=== PATIENT | female | born 1975 | race Caucasian/White ===

== ENCOUNTER 2016-09-20 10:23 | Inpatient (IN) | payer MEDICAID ==
[~2016-09-20] VITALS: Ht 152.4 cm; Wt 72.4 kg
[2016-09-20] MEDS ORDERED: CARBOPROST 250 MCG INJ IM PRN (11:00)
[2016-09-20] MEDS ORDERED: BUTORPHANOL 2 MG INJ IV PRN (11:00)
[2016-09-20] MEDS ORDERED: LACTATED RINGER'S 1,000 ML IV PRN (11:00)
[2016-09-20] MEDS ORDERED: AMPICILLIN 2 GM/NS (PMX) 100 ML IV ONE (11:00)
[2016-09-20] MEDS ORDERED: OXYTOCIN 30 UNITS/LR 500 ML IV SCH ×3 (11:00→14:30)
[2016-09-20] MEDS ORDERED: LIDOCAINE 1% (MPF) 30 ML INJ INJ PRN (11:00)
[2016-09-20] MEDS ORDERED: METHYLERGONOVINE 0.2 MG INJ IM PRN (11:00)
[2016-09-20] MEDS ORDERED: MISOPROSTOL 200 MCG TAB PR PRN (11:00)
[2016-09-20] MEDS ORDERED: OXYTOCIN 30 UNITS/LR 500 ML IV PRN (11:00)
[2016-09-20] MEDS: LACTATED RINGER'S 1,000 ML IV SCH ×2 (11:19→15:30)
[2016-09-20 11:29] VITALS: Ht 152.4 cm; Wt 72.4 kg
[2016-09-20 11:30] VITALS: BP 100/55; PULSE 67; RESP 21
[2016-09-20] MEDS ORDERED: PRENAT PO (11:40)
[2016-09-20 11:54] LABS: BASOPHILS % 0.5 % (0.0-2.0); EOSINOPHILS % 0.2 % (0.0-7.0); HEMATOCRIT 34.1 % (37.0-47.0); HEMOGLOBIN 11.6 g/dl (12.0-16.0); LYMPHOCYTES # 1.4 10^3/ul (0.8-2.9); LYMPHOCYTES % 24.3 % (15.0-51.0); MEAN CORPUSCULAR HEMOGLOBIN 32.1 pg (29.0-33.0); MEAN CORPUSCULAR HGB CONC 34.2 g/dl (32.0-37.0); MEAN CORPUSCULAR VOLUME 93.8 fl (82.0-101.0); MEAN PLATELET VOLUME 10.6 fl (7.4-10.4); MONOCYTE # 0.3 10^3/ul (0.3-0.9); MONOCYTES % 5.7 % (0.0-11.0); NEUTROPHILS % 69.3 % (39.0-77.0); PLATELET COUNT 150 10^3/UL (140-440); RED BLOOD COUNT 3.63 10^6/ul (4.20-5.40); RED CELL DISTRIBUTION WIDTH 14.2 % (11.5-14.5); UNCORRECTED WBC 5.7 10^3/ul (4.8-10.8); WHITE BLOOD COUNT 5.7 10^3/ul (4.8-10.8)
[2016-09-20 11:59] LABS: CONDITION 1
[2016-09-20 12:06] LABS: PROTIME 13.2 Sec (12.2-14.2)
[2016-09-20 12:07] LABS: PARTIAL THROMBOPLASTIN TIME 31.3 Sec (25.0-35.0)
--- NOTE | 2016-09-20 13:02 | RADRPT ---
PROCEDURE: US OB. CLINICAL INDICATION: Gestational diabetes TECHNIQUE: Multiple sonographic images of the pelvis were obtained. Transabdominal imaging only w as performed. The images were reviewed on a PACS workstation. COMPARISON: No prior studies are available for comparison. FINDINGS: There is a single viable intrauterine gestation. Cardiac activity is present with 137 beats per min reema. There is a cephalic presentation. Measurements were made in order to determine age. The results are as follows: BPD = 9.11 cm HC = 33.84 cm AC = 37.13 cm FL = 6.95 cm Gestational age is 38 weeks 1 day and DANIEL is 10/03/2016 by ultrasound criteria. Gestational age is 38 weeks 5 days and DANIEL is 09/29/2016 by LMP. EFW = 3715 g +/- 557 g (78 %). The placenta is anterior. There is no evidence for an abruption or placenta previa. IMPRESSION: 1. Single live intrauterine gestation of approximately 38 weeks 1 day by ultrasound criteria. RPTAT: EE .Davy Trinidad MD, Date Time Electronically viewed and signed by .Davy Trinidad MD, on 09/20/2016 13:02 .R/
[2016-09-20] MEDS: AMPICILLIN 1 GM/NS (PMX) 50 ML IV SCH ×3 (15:33→23:33)
[2016-09-20] MEDS: DEXTROSE 5%-LR 1,000 ML IV SCH (17:12)
[2016-09-21] MEDS: LACTATED RINGER'S 1,000 ML IV SCH ×2 (03:14→10:56)
[2016-09-21] MEDS: AMPICILLIN 1 GM/NS (PMX) 50 ML IV SCH ×4 (03:23→15:45)
[2016-09-21] MEDS: DEXTROSE 5%-LR 1,000 ML IV SCH ×3 (07:15→13:08)
[2016-09-21] MEDS ORDERED: LACTATED RINGER'S 1,000 ML IV ONE (09:49)
[2016-09-21] MEDS ORDERED: FENTAnyl 2MCG/ML-ROPIV 0.2% 100 ML ONE (09:54)
[2016-09-21] MEDS ORDERED: ONDANSETRON 4 MG INJ ONE (09:55)
[2016-09-21] MEDS ORDERED: CITRIC ACID/NA CITRATE 30 ML CUP ONE (09:55)
[2016-09-21] MEDS ORDERED: ONDANSETRON 4 MG INJ IV STA (09:56)
[2016-09-21] MEDS ORDERED: FENTAnyl 2MCG/ML-ROPIV 0.2% 100 ML BAG EPI SCH ×2 (10:00)
[2016-09-21] MEDS ORDERED: DIPHENHYDRAMINE 50 MG INJ IV PRN (10:00)
[2016-09-21] MEDS ORDERED: CITRIC ACID/NA CITRATE 30 ML CUP PO ONE ×2 (10:00)
[2016-09-21] MEDS ORDERED: ONDANSETRON 4 MG INJ IV ONE (10:00)
[2016-09-21] MEDS ORDERED: NALOXONE (0.4 MG/ML) INJ IV PRN (10:00)
[2016-09-21] MEDS ORDERED: ONDANSETRON 4 MG INJ IV PRN ×2 (10:00→18:30)
[2016-09-21] MEDS ORDERED: PROCHLORPERAZINE 10 MG INJ IV PRN (10:00)
[2016-09-21] MEDS ORDERED: OXYTOCIN 30 UNITS/LR 500 ML IV SCH (10:00)
[2016-09-21] MEDS ORDERED: HYDROmorphONE 1 MG/ML SYG IV PRN ×2 (10:00)
--- NOTE | 2016-09-21 16:55 | HP ---
Date/Time of Note Date/Time of Note DATE: 09/21/16 TIME: 16:46 OB - History Hx of Present Free Text/Dictation 41 years old female 5 para 4 at 38 weeks 5 7 days admitted to [facility] labor and delivery room in active labor, pelvic examination on admission' cervical dilatation at 3 cm 60% effacement vertex at - 2 station contractions every 3-4 minutes heart tones category 1 her was complicated with gestational diabetes diet-controlled Estimated Due Date: Sep 29, 2016 : 5 Para: 4 Care: Limited Care Ultrasounds: Normal mid trimester US Obstetrical Complications: Gestational Diabetes Medical Complications: None Past Family/Social History * Past Medical, Surgical, Family and Obstetric Histories reviewed from chart. Rubella: immune RPR/VDRL: Negative GBS Status: Negative HBsAG: Negative OB Admission Exam Vital Signs Vital Signs Vital Signs Date Time Temp Pulse Resp B/P Pulse Ox O2 Delivery O2 Flow Rate FiO2 09/20/16 11:30 98.0 67 21 100/55 98 Room Air Last 72 hourBlood Glucose Bedside Glucose - 72 Hours Test 09/20/16 16:40 09/20/16 19:39 09/21/16 10:46 09/21/16 15:09 Bedside Glucose 65mg/dL (70-220) L 115mg/dL (70-220) 92mg/dL (70-220) 104mg/dL (70-220) Last 72 hours Lab Results CBC & BMP 09/20/16 11:15 ZAN GARDUNO MD Sep 21, 2016 16:55
--- NOTE | 2016-09-21 17:04 | LDN ---
Date/Time of Note Date/Time of Note DATE: 09/21/16 TIME: 16:57 Delivery Summary Normal spontaneous vaginal delivery of a baby boy from RAFAEL position shoulders rather large but anterior shoulder delivered with suprapubic pressure followed with the posterior shoulder delivery the rest of the baby's body followed cord clamped and cut after pulsations ceased nasal oropharyngeal suction. And baby handed to the team for immediate attention patient received 20 units of Pitocin through the IV infusion, placenta, spontaneous exposure inspected complete sent to the pathology due to meconium, Placenta Delivered: Spontaneously Meconium: Thick Perineum intact?: Yes Anesthesia type: Epidural Sponge & Needle done & correct: Yes All needle counts correct: Yes Any foreign bodies felt in the: No Problems: Infant Delivery Information Apgars 1 Minute: 9 5 Minute: 9 Suctioning Nose & mouth suctioned at estephania: Yes Delee suction performed: No Umbilical Cord Umbilical cord with: 3 Vessels Cord presentations: no nuchal cord Cord Blood was obtained: Yes ZAN GARDUNO MD Sep 21, 2016 17:04
[2016-09-21] MEDS ORDERED: OXYCODONE/ASPIRIN (4.88/325) TAB PO PRN ×2 (18:30)
[2016-09-21] MEDS ORDERED: WITCH HAZEL/GLYCERIN PAD PR PRN (18:30)
[2016-09-21] MEDS ORDERED: ACETAMINOPHEN 325 MG TAB PO PRN (18:30)
[2016-09-21] MEDS ORDERED: DIBUCAINE 1% 30 GM OINT PR PRN (18:30)
[2016-09-21] MEDS ORDERED: LANOLIN 7 GM TUBE TOP PRN (18:30)
[2016-09-21] MEDS ORDERED: BENZOCAINE 20% 56 ML SPRAY TOP PRN (18:30)
[2016-09-21] MEDS ORDERED: ACETAMINOPHEN/CODEINE #3 TAB PO PRN ×2 (18:30)
[2016-09-21] MEDS: OXYTOCIN 30 UNITS/LR 500 ML IV SCH ×2 (18:52→23:11)
[2016-09-21 19:45] VITALS: BP 110/65; PULSE 82; RESP 18
[2016-09-21] MEDS: SENNA/DOCUSATE NA (8.6MG/50MG) TAB PO SCH (23:54)
[2016-09-21] MEDS: IBUPROFEN 600 MG TAB PO SCH (23:54)
[2016-09-22] VITALS: BP 107/67; PULSE 80; RESP 18
[2016-09-22] MEDS: IBUPROFEN 600 MG TAB PO SCH ×3 (06:03→18:02)
[2016-09-22 08:00] VITALS: BP 95/64; PULSE 20; RESP 19
[2016-09-22 08:12] LABS: BASOPHILS % 0.5 % (0.0-2.0); EOSINOPHILS % 0.4 % (0.0-7.0); HEMATOCRIT 29.6 % (37.0-47.0); LYMPHOCYTES # 1.7 10^3/ul (0.8-2.9); LYMPHOCYTES % 16.9 % (15.0-51.0); MEAN CORPUSCULAR HEMOGLOBIN 32.1 pg (29.0-33.0); MEAN CORPUSCULAR HGB CONC 33.8 g/dl (32.0-37.0); MEAN CORPUSCULAR VOLUME 95.1 fl (82.0-101.0); MEAN PLATELET VOLUME 10.5 fl (7.4-10.4); MONOCYTE # 0.6 10^3/ul (0.3-0.9); MONOCYTES % 5.6 % (0.0-11.0); NEUTROPHIL # 7.7 10^3/ul (1.6-7.5); NEUTROPHILS % 76.6 % (39.0-77.0); PLATELET COUNT 129 10^3/UL (140-440); RED BLOOD COUNT 3.11 10^6/ul (4.20-5.40); RED CELL DISTRIBUTION WIDTH 14.3 % (11.5-14.5)
[2016-09-22 08:17] LABS: CONDITION 1
--- NOTE | 2016-09-22 09:45 | PN ---
Date/Time of Note Date/Time of Note DATE: 09/22/16 TIME: 09:43 OB Subjective Subjective Subjective day 1 Vital sign stable abdomen soft uterus firm lochia normal extremity normal ambulation encouraged Laboratory Tests Test 09/21/16 10:46 09/21/16 15:09 09/22/16 07:38 Bedside Glucose 92mg/dL 104mg/dL Basophils # 0.010^3/ul Basophils % 0.5% Blood Morphology Comment Eosinophils # 0.010^3/ul Eosinophils % 0.4% Hematocrit 29.6% Hemoglobin 10.0g/dl Lymphocytes # 1.710^3/ul Lymphocytes % 16.9% Mean Corpuscular Hemoglobin 32.1pg Mean Corpuscular Hemoglobin Concent 33.8g/dl Mean Corpuscular Volume 95.1fl Mean Platelet Volume 10.5fl Monocytes # 0.610^3/ul Monocytes % 5.6% Neutrophils # 7.710^3/ul Neutrophils % 76.6% Nucleated Red Blood Cells # 0.010^3/ul Nucleated Red Blood Cells % 0.0/100WBC Platelet Count 57740^3/UL Red Blood Count 3.1110^6/ul Red Cell Distribution Width 14.3% White Blood Count 10.010^3/ul Current Medications Medications (Trade) Dose Ordered Sig/Dmitri Route PRN Reason Start Time Stop Time Status Last Admin Dose Admin Lactated Ringer's 1,000 ml @ 125 mls/hr Q8H IV 09/20/16 10:56 09/21/16 18:18 DC 09/21/16 03:14 Ampicillin 100 ml @ 100 mls/hr ONCE ONCE IV 09/20/16 11:00 09/20/16 11:59 DC 09/20/16 11:24 Ampicillin (Ampicillin 1 Gm/ NS (Pmx)) 50 ml @ 100 mls/hr Q4H IV 09/20/16 15:00 09/21/16 18:18 DC 09/21/16 15:45 Butorphanol Tartrate (Stadol) 2 mg Q2H PRN IV PAIN 09/20/16 11:00 09/21/16 18:18 DC Lidocaine 30 ml 30 ml ONCE PRN INJ EPISIOTOMY/TEARING 09/20/16 11:00 09/21/16 18:18 DC Oxytocin/Lactated Ringer's 500 ml @ 125 mls/hr ONCE -MAY REPEAT X1 IV 09/20/16 11:00 09/21/16 18:18 DC Oxytocin/Lactated Ringer's 500 ml @ 125 mls/hr ONCE IV 09/20/16 11:00 09/21/16 18:18 DC 09/21/16 16:35 Lactated Ringer's 1,000 ml @ 2,000 mls/hr Q30M PRN IV PRE-EPIDURAL BOLUS 09/20/16 11:00 09/21/16 18:18 DC 09/21/16 09:52 Oxytocin/Lactated Ringer's 500 ml @ 0 mls/hr ONCE PRN IV For Hemorrhage Management 09/20/16 11:00 09/21/16 18:18 DC Methylergonovine Maleate (Methergine) 0.2 mg ONCE PRN IM VAGINAL BLEEDING 09/20/16 11:00 09/21/16 18:18 DC Carboprost Tromethamine (Hemabate) 250 mcg ONCE PRN IM VAGINAL BLEEDING 09/20/16 11:00 09/21/16 18:18 DC Misoprostol 1000 mcg 1,000 mcg ONCE PRN TN VAGINAL BLEEDING 09/20/16 11:00 09/21/16 18:18 DC Oxytocin/Lactated Ringer's 500 ml @ 0 mls/hr TITRATE IV 09/20/16 14:30 09/21/16 18:18 DC 09/21/16 09:39 Dextrose/Lactated Ringer's 1,000 ml @ 125 mls/hr Q8H IV 09/20/16 17:00 09/21/16 18:18 DC 09/21/16 13:08 Oxytocin/Lactated Ringer's 500 ml @ 0 mls/hr Q0M IV 09/21/16 10:00 09/21/16 18:18 DC Lactated Ringer's (Lr) 1,000 ml @ 1,000 mls/hr Q1H ONCE IV 09/21/16 09:49 09/21/16 10:50 DC Ondansetron HCl (Zofran Inj) 4 mg pre-procedure ONCE IV 09/21/16 10:00 09/21/16 10:01 DC Citric Acid/ Sodium Citrate (Bicitra) 30 ml pre-procedure ONCE PO 09/21/16 10:00 09/21/16 10:01 DC Naloxone HCl (Narcan) 0.1 mg Q2M PRN IV FOR RESP RATE 8 OR LESS 09/21/16 10:00 09/21/16 18:18 DC Hydromorphone HCl (Dilaudid) 0.2 mg Q3H PRN IV PAIN LEVEL 1-5 09/21/16 10:00 09/21/16 18:18 DC Hydromorphone HCl (Dilaudid) 0.4 mg Q3H PRN IV PAIN LEVEL 6-10 09/21/16 10:00 09/21/16 18:18 DC Diphenhydramine HCl (Benadryl) 25 mg Q6H PRN IV ITCHING 09/21/16 10:00 09/21/16 18:18 DC Ondansetron HCl (Zofran Inj) 4 mg Q6H PRN IV NAUSEA AND/OR VOMITING 09/21/16 10:00 09/21/16 18:18 DC Prochlorperazine (Compazine Inj) 10 mg ONCE PRN IV NAUSEA AND/OR VOMITING 09/21/16 10:00 09/21/16 18:18 DC Fentanyl/ Ropivacaine 100 ml 100 ml EPIDURAL INFUSION EPI 09/21/16 10:00 09/21/16 14:31 DC Fentanyl/ Ropivacaine 100 ml @ ud STK-MED ONCE .ROUTE 09/21/16 09:54 09/21/16 09:55 DC Citric Acid/ Sodium Citrate (Bicitra) 30 ml STK-MED ONCE .ROUTE 09/21/16 09:55 09/21/16 09:56 DC Ondansetron HCl (Zofran Inj) 4 mg STK-MED ONCE .ROUTE 09/21/16 09:55 09/21/16 09:56 DC Ondansetron HCl (Zofran Inj) 4 mg ONCE STAT IV 09/21/16 09:56 09/21/16 10:09 DC Citric Acid/ Sodium Citrate (Bicitra) 30 ml ONCE ONCE PO 09/21/16 10:00 09/21/16 10:09 DC Fentanyl/ Ropivacaine 100 ml 100 ml EPIDURAL INFUSION EPI 09/21/16 10:00 09/21/16 18:18 DC Oxytocin/Lactated Ringer's 500 ml @ 125 mls/hr Q4H IV 09/21/16 18:14 09/22/16 02:13 DC 09/21/16 23:11 Ibuprofen (Motrin) 600 mg Q6 PO 09/22/16 00:00 09/22/16 06:03 Acetaminophen (Tylenol Tab) 650 mg Q4H PRN PO PAIN LEVEL 1-5 09/21/16 18:30 Acetaminophen/ Codeine Phosphate (Tylenol No.3) 1 tab Q4H PRN PO PAIN LEVEL 1-5 09/21/16 18:30 09/21/16 19:03 Acetaminophen/ Codeine Phosphate (Tylenol No.3) 2 tab Q4H PRN PO PAIN LEVEL 6-10 09/21/16 18:30 Oxycodone/Aspirin (Percodan) 1 tab Q3H PRN PO PAIN LEVEL 1-5 09/21/16 18:30 Oxycodone/Aspirin (Percodan) 2 tab Q3H PRN PO PAIN LEVEL 6-10 09/21/16 18:30 Ondansetron HCl (Zofran Inj) 4 mg Q6H PRN IV NAUSEA AND/OR VOMITING 09/21/16 18:30 Senna/Docusate Sodium (Senokot-S) 1 tab BID PO 09/21/16 21:00 09/21/16 23:54 Witch [place]anna/ Glycerin (Tucks Pads) 1 pad BEDSIDE MEDICATION PRN TN HEMORRHOID/EPISIOTMY PAIN 09/21/16 18:30 09/21/16 18:52 Benzocaine (Dermoplast [place]) 1 spray BEDSIDE MEDICATION PRN TOP HEMORRHOID/EPISIOTMY PAIN 09/21/16 18:30 09/21/16 18:52 Dibucaine (Nupercainal) 1 applic BEDSIDE MEDICATION PRN TN HEMORRHOID/EPISIOTMY PAIN 09/21/16 18:30 Lanolin (Ixd-V-Hgykby) 1 applic BEDSIDE MEDICATION PRN TOP BEDSIDE FOR JABIER TO NIPPLES 09/21/16 18:30 09/21/16 18:53 Measles/Mumps/ Rubella Vaccine Live (Mmr Ii Vaccine) 0.5 ml ONCE ONCE SC* 09/23/16 09:00 09/23/16 09:01 ZAN GARDUNO MD Sep 22, 2016 09:45
[2016-09-22] MEDS: SENNA/DOCUSATE NA (8.6MG/50MG) TAB PO SCH ×2 (09:46→21:06)
[2016-09-22 16:00] VITALS: BP 104/55; PULSE 20; RESP 19
[2016-09-22 19:50] VITALS: BP 111/63; PULSE 71; RESP 18
--- NOTE | 2016-09-22 22:33 | NSTRPT ---
NST Information Datetime Report Generated by CPN: 09/22/2016 22:33 Datetime: 09/20/2016 08:55 NST Information EGA: 38.5 Test Number: 2 Time on Monitor: 09/20/2016 09:18 Time off Monitor: 09/20/2016 09:52 NST Duration (Min): 34 Reason for NST: Diabetes Mellitus; Other Reason for NST Other: A1DM Test and Monitor Explained: Monitor Explained; Test Explained; Verbalized Understanding Pulse: 60 Resp: 18 SBP: 103 DBP: 59 Test Evaluation NST Interventions: Reposition Patient Patient States Movement: Present Contraction Frequency: q6, pt states she has UC's 12/12 since 4 am FHR Baseline : 145 Variability: Moderate 6-25bpm Accelerations: 10X10 Decelerations: Late FHR Category: Category II NST Results: Non-Reactive Comments: To u/s MARCOS-23.8 cm, ceph, 0950-Report called to Dr Patel, recommends pt for delivery, 0952-Call placed to Dr Gibson, order received to admit to L_D for delivery. 0958-POC explained to pt, states understanding and denies fur ther questions at this time. Pt to L_D Electronically Signed By E-Signature: with User ID: [id number] Datetime: 09/07/2016 09:04 NST Information EGA: 36.6 Datetime: 09/07/2016 08:46 NST Duration (Min): 72
[2016-09-23] MEDS: IBUPROFEN 600 MG TAB PO SCH ×3 (00:12→12:19)
[2016-09-23 04:30] VITALS: BP 109/60; PULSE 65; RESP 18
[2016-09-23 08:41] VITALS: BP 108/56; PULSE 65; RESP 18
[2016-09-23 08:52] VITALS: BP 111/56; PULSE 66; RESP 18
[2016-09-23] MEDS ORDERED: MEASLES,MUMPS,RUBELLA VACCINE INJ SC* ONE (09:00)
[2016-09-23] MEDS: SENNA/DOCUSATE NA (8.6MG/50MG) TAB PO SCH (09:59)
--- NOTE | 2016-09-23 15:12 | PD.PPDC ---
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
--- NOTE | 2016-09-23 15:15 | DS ---
Date/Time of Note Date/Time of Note DATE: 09/23/16 TIME: 15:14 Obstetrical Discharge Record Final Diagnosis Final Diagnosis: Term delivered Condition on Discharge Physical Assessment Last Vitals: Vital sign is stable, abdomen soft uterus firm lochia normal streaky normal discharged home with instruction to be seen at the clinic 2 weeks Voiding: Yes Bowel Movement: Yes Breast: Soft, non-tender, Filling Fundus: Firm Calf Tenderness: No Patient Condition: Good ZAN GARDUNO MD Sep 23, 2016 15:15
== END 2016-09-23 15:50 | disposition home or self-care (01) | DRG 775 ==
LOC: L-D 10:23 → PP1 09-21 18:11
PROVIDERS: ADMIT Obstetrics & Gynecology; ATTEND Obstetrics & Gynecology
PROC: 10E0XZZ Delivery of Products of Conception, External Approach (ICD-10-PCS; principal; 2016-09-21)
DX: O24.429 Gestational diabetes mellitus in childbirth, unspecified control (principal); Z37.0 Single live birth; Z3A.38 38 weeks gestation of pregnancy
CPT/HCPCS: 62319; 76815; 82947; 82962; 85025; 85610; 85730; 86592; 86900; 86901; 88307; 99464; J0290; J2405; J2590; J3010; J7120; J7121